=== PATIENT | female | born 1940 | race Caucasian/White ===

== ENCOUNTER 2020-11-26 01:26 | Inpatient (IN) | payer OTHER ==
[2020-11-26 01:40] VITALS: BMI 26.6
[2020-11-26 02:27] LABS: HEMATOCRIT 37.8 % (32.4-45.2); HEMOGLOBIN 11.6 GM/dL (10.7-15.3); MCH 29.5 pg (25.7-33.7); MCHC 30.8 g/dl (32.0-36.0); MEAN CELL VOLUME 95.7 fl (80-96); MEAN PLT VOLUME 9.8 fl (7.5-11.1); PLATELET COUNT 248 10^3/uL (134-434); RBC 3.95 M/mm3 (3.60-5.2); WHITE BLOOD COUNT 18.2 K/mm3 (4.0-10.0)
[2020-11-26 03:05] LABS: ALBUMIN 2.8 g/dl (3.4-5.0); ALK PHOS 81 U/L (45-117); ANION GAP 6 MMOL/L (8-16); BILIRUBIN,TOTAL 0.2 mg/dL (0.2-1); BLOOD UREA NITROGEN 52.4 mg/dL (7-18); CALCIUM 7.8 mg/dL (8.5-10.1); CHLORIDE 125 mmol/L (98-107); CO2 21 mmol/L (21-32); CREATININE 2.3 mg/dL (0.55-1.3); GLUCOSE,RANDOM 238 mg/dL (74-106); MAGNESIUM 2.8 mg/dL (1.8-2.4); SGOT/AST 13 U/L (15-37); SGPT/ALT 19 U/L (13-61); SODIUM 152 mmol/L (136-145); TOT PROT 7.1 g/dl (6.4-8.2)
[2020-11-26 03:26] LABS: EPI CELLS 8 /uL (0-25.1); HYALINE CASTS 7 /uL (0-3.1); URINE APPEARANCE CLOUDY; URINE BACTERIA 8612 /uL (0-1359); URINE BILIRUBIN NEGATIVE (NEGATIVE); URINE COLOR YELLOW; URINE GLUCOSE (UA) NEGATIVE (NEGATIVE); URINE KETONE NEGATIVE (NEGATIVE); URINE LEUK ESTERASE 3+ (NEGATIVE); URINE NITRITE NEGATIVE (NEGATIVE); URINE PROTEIN TRACE (NEGATIVE); URINE RBC 10 /uL (0-23.9); URINE UROBILINOGEN 0.2 mg/dL (0.2-1.0); URINE WBC 382 /uL (0-25.8)
[2020-11-26] MEDS ORDERED: LACTATED RINGERS SOLUTION 1000 ML INFUS.BAG IV ONE (03:28)
[2020-11-26] MEDS ORDERED: CEFTRIAXONE 1 GM/50 ML BAG ONE (04:58)
[2020-11-26 05:18] LABS: YEAST PRESENT (NEGATIVE)
[2020-11-26] MEDS ORDERED: PIPERACILLIN/TAZOB 3.375 GM 3.375 GM in DEXTROSE 5%-WATER - 50 ML IVPB ONE (07:25)
[2020-11-26] MEDS ORDERED: VANCOMYCIN 1,000 MG in DEXTROSE 5%-WATER - 250 ML IVPB ONE (07:26)
[2020-11-26] MEDS ORDERED: VANCOMYCIN 1 GRAM (PRE-DOCKED) 1,000 MG/250 ML BAG IVPB ONE ×2 (07:47→08:51)
[2020-11-26] MEDS ORDERED: PIPERACILLIN/TAZOB 3.375 GM 3.375 GM/50 ML BAG IVPB ONE (07:48)
[2020-11-26] MEDS ORDERED: ISOSORBIDE MONONITRATE 60 MG TAB.SR.24H (FP) PO ONE (09:08)
[2020-11-26] MEDS ORDERED: lamoTRIgine 25 MG TABLET ONE (09:09)
[2020-11-26] MEDS: ISOSORBIDE MONONITRATE 30 MG TAB.SR.24H (FP) PO SCH (09:22)
[2020-11-26] MEDS: lamoTRIgine 25 MG TABLET PO SCH ×2 (09:22→22:36)
[2020-11-26] MEDS: SODIUM CHLORIDE 0.45% 1,000 ML IV SCH (15:55)
[2020-11-26] MEDS ORDERED: INSULIN (NOVOLOG) ASPART 100 UNITS/ML 10ML VIAL ONE (17:27)
[2020-11-26] MEDS ORDERED: levETIRAcetam 500 MG TABLET (FP) PO SCH (22:00)
[2020-11-26] MEDS: levETIRAcetam 500 MG/5 ML INJECTION VIAL IVPB SCH (22:34)
[2020-11-27] MEDS: SODIUM CHLORIDE 0.45% 1,000 ML IV SCH ×3 (02:02→20:36)
[2020-11-27] MEDS: lamoTRIgine 25 MG TABLET PO SCH ×2 (09:30→21:19)
[2020-11-27] MEDS: ISOSORBIDE MONONITRATE 30 MG TAB.SR.24H (FP) PO SCH (09:30)
[2020-11-27] MEDS: levETIRAcetam 500 MG/5 ML INJECTION VIAL IVPB SCH ×2 (09:31→21:20)
[2020-11-27] MEDS ORDERED: CEFTRIAXONE 1 GM in DEXTROSE 5%-WATER - 50 ML IVPB SCH ×2 (10:00→11:45)
[2020-11-27 19:33] LABS: CREATININE 1.1 mg/dL (0.55-1.3)
[2020-11-27 20:03] LABS: BLOOD UREA NITROGEN 25.4 mg/dL (7-18)
[2020-11-27] MEDS ORDERED: INSULIN (NOVOLOG) ASPART 100 UNITS/ML 10ML VIAL SQ ONE (21:43)
[2020-11-27] MEDS ORDERED: QUEtiapine FUMARATE 25 MG TABLET PO ONE (23:45)
[2020-11-28] MEDS ORDERED: MIRTAZAPINE 15 MG TABLET (FP) PO ONE (01:56)
[2020-11-28 08:36] LABS: BASO % 0.8 % (0-2.0); EOS % 2.9 % (0-4.5); HEMATOCRIT 34.7 % (32.4-45.2); HEMOGLOBIN 11.4 GM/dL (10.7-15.3); LYMPH % 12.9 % (8-40); MCH 30.3 pg (25.7-33.7); MCHC 32.8 g/dl (32.0-36.0); MEAN CELL VOLUME 92.2 fl (80-96); MEAN PLT VOLUME 10.2 fl (7.5-11.1); MONO % 9.4 % (3.8-10.2); PLATELET COUNT 238 10^3/uL (134-434); RBC 3.77 M/mm3 (3.60-5.2); RDW 13.8 % (11.6-15.6); WHITE BLOOD COUNT 11.5 K/mm3 (4.0-10.0)
[2020-11-28 09:05] LABS: CALCIUM 7.8 mg/dL (8.5-10.1)
[2020-11-28 09:06] LABS: ALBUMIN 2.9 g/dl (3.4-5.0); BLOOD UREA NITROGEN 16.3 mg/dL (7-18); MAGNESIUM 1.8 mg/dL (1.8-2.4)
[2020-11-28 09:09] LABS: PHOSPHOROUS 1.2 mg/dL (2.5-4.9)
[2020-11-28 09:10] LABS: BILIRUBIN,TOTAL 0.5 mg/dL (0.2-1); TOT PROT 6.7 g/dl (6.4-8.2)
[2020-11-28] MEDS: ISOSORBIDE MONONITRATE 30 MG TAB.SR.24H (FP) PO SCH (09:11)
[2020-11-28] MEDS: lamoTRIgine 25 MG TABLET PO SCH ×2 (09:11→21:41)
[2020-11-28] MEDS: levETIRAcetam 500 MG/5 ML INJECTION VIAL IVPB SCH ×2 (09:12→22:46)
[2020-11-28] MEDS: SODIUM CHLORIDE 0.45% 1,000 ML IV SCH ×2 (09:15→13:33)
[2020-11-28] MEDS ORDERED: POTASSIUM PHOSPHATE 30 MM in DEXTROSE 5%-WATER - 500 ML IVPB ONE (14:02)
[2020-11-28] MEDS ORDERED: PT OWN MED DRAWER 7, Y5N ONE (21:28)
[2020-11-28] MEDS: MIRTAZAPINE 15 MG TABLET (FP) PO SCH (21:41)
[2020-11-29 08:02] LABS: HEMATOCRIT 32.1 % (32.4-45.2); HEMOGLOBIN 10.8 GM/dL (10.7-15.3); MCH 30.6 pg (25.7-33.7); MCHC 33.6 g/dl (32.0-36.0); MEAN PLT VOLUME 10.2 fl (7.5-11.1); PLATELET COUNT 221 10^3/uL (134-434); RBC 3.53 M/mm3 (3.60-5.2); WHITE BLOOD COUNT 10.1 K/mm3 (4.0-10.0)
[2020-11-29 08:46] LABS: BLOOD UREA NITROGEN 9.9 mg/dL (7-18); CALCIUM 7.1 mg/dL (8.5-10.1); CREATININE 0.9 mg/dL (0.55-1.3); MAGNESIUM 1.5 mg/dL (1.8-2.4); PHOSPHOROUS 2.2 mg/dL (2.5-4.9)
[2020-11-29] MEDS: levETIRAcetam 500 MG/5 ML INJECTION VIAL IVPB SCH ×2 (09:00→22:11)
[2020-11-29] MEDS: SODIUM CHLORIDE 0.45% 1,000 ML IV SCH ×2 (09:01→13:54)
[2020-11-29] MEDS: lamoTRIgine 25 MG TABLET PO SCH ×2 (09:01→22:11)
[2020-11-29] MEDS: ISOSORBIDE MONONITRATE 30 MG TAB.SR.24H (FP) PO SCH (09:01)
[2020-11-29] MEDS ORDERED: MINERAL OIL ENEMA 133 ML ENEMA PR ONE (11:26)
[2020-11-29] MEDS ORDERED: amLODIPine BESYLATE 5 MG TABLET (FP) PO SCH (13:30)
[2020-11-29] MEDS: DEXTROSE 5%-0.45% SALINE 1,000 ML IV SCH (13:57)
[2020-11-29] MEDS: amLODIPine BESYLATE 5 MG TABLET (FP) PO SCH (15:08)
[2020-11-29] MEDS ORDERED: MAGNESIUM SULF 50% (8.12 MEQ/2 ML-1 GM VIAL) IVPB ONE (15:13)
[2020-11-29] MEDS ORDERED: POTASSIUM PHOSPHATE 30 MM in DEXTROSE 5%-WATER - 500 ML IVPB ONE (18:30)
[2020-11-29] MEDS: MIRTAZAPINE 15 MG TABLET (FP) PO SCH (22:11)
[2020-11-30] MEDS: QUEtiapine FUMARATE 25 MG TABLET PO PRN ×2 (02:07→02:19)
[2020-11-30] MEDS ORDERED: LORazepam 2 MG/ML SDV VIAL IVPUSH ONE (03:00)
[2020-11-30] MEDS: levETIRAcetam 500 MG/5 ML INJECTION VIAL IVPB SCH ×2 (10:56→22:23)
[2020-11-30] MEDS: ISOSORBIDE MONONITRATE 30 MG TAB.SR.24H (FP) PO SCH (12:32)
[2020-11-30] MEDS: lamoTRIgine 25 MG TABLET PO SCH ×2 (12:33→22:32)
[2020-11-30] MEDS: amLODIPine BESYLATE 5 MG TABLET (FP) PO SCH (12:34)
[2020-11-30 13:11] LABS: BLOOD UREA NITROGEN 5.5 mg/dL (7-18); CALCIUM 7.6 mg/dL (8.5-10.1)
[2020-11-30 13:15] LABS: CREATININE 0.9 mg/dL (0.55-1.3)
[2020-11-30] MEDS: DEXTROSE 5%-0.45% SALINE 1,000 ML IV SCH (13:15)
[2020-11-30] MEDS ORDERED: FAT EMULSIONS 20% 250 ML PREMIX INFUS.BAG IV SCH (14:07)
[2020-11-30 14:38] LABS: PHOSPHOROUS 2.1 mg/dL (2.5-4.9)
[2020-11-30] MEDS ORDERED: POTASSIUM PHOSPHATE 15 MM in DEXTROSE 5%-WATER - 500 ML IVPB ONE (15:30)
[2020-11-30] MEDS: AMINO ACIDS 4.25%/D5W 1,000 ML IV SCH (15:36)
[2020-11-30] MEDS: QUEtiapine FUMARATE 25 MG TABLET PO SCH ×2 (22:00→23:33)
[2020-11-30] MEDS: MIRTAZAPINE 15 MG TABLET (FP) PO SCH (22:32)
[2020-11-30] MEDS: FAT EMULSION/OLIVE/SOY/PHOSPHO 250 ML IV SCH (23:19)
[2020-12-01] MEDS: ISOSORBIDE MONONITRATE 30 MG TAB.SR.24H (FP) PO SCH (09:16)
[2020-12-01] MEDS: QUEtiapine FUMARATE 25 MG TABLET PO SCH ×2 (09:17→21:07)
[2020-12-01] MEDS: lamoTRIgine 25 MG TABLET PO SCH ×2 (09:17→21:06)
[2020-12-01] MEDS: amLODIPine BESYLATE 5 MG TABLET (FP) PO SCH (09:18)
[2020-12-01] MEDS: levETIRAcetam 500 MG/5 ML INJECTION VIAL IVPB SCH ×2 (09:20→21:06)
[2020-12-01] MEDS: LORazepam 2 MG/ML SDV VIAL IVPUSH PRN ×2 (14:09→23:16)
[2020-12-01] MEDS: SODIUM CHLORIDE 1,000 ML IV SCH (14:09)
[2020-12-01] MEDS: AMINO ACIDS 4.25%/D5W 1,000 ML IV SCH (15:49)
[2020-12-01] MEDS: MIRTAZAPINE 15 MG TABLET (FP) PO SCH (21:06)
[2020-12-01] MEDS: FAT EMULSION/OLIVE/SOY/PHOSPHO 250 ML IV SCH (23:09)
[2020-12-02 09:14] LABS: CALCIUM 8.3 mg/dL (8.5-10.1)
[2020-12-02 09:16] LABS: BLOOD UREA NITROGEN 11.3 mg/dL (7-18); MAGNESIUM 1.7 mg/dL (1.8-2.4)
[2020-12-02 09:17] LABS: CREATININE 0.9 mg/dL (0.55-1.3); PHOSPHOROUS 2.4 mg/dL (2.5-4.9)
[2020-12-02 09:18] LABS: BILIRUBIN,TOTAL 0.4 mg/dL (0.2-1); TOT PROT 6.8 g/dl (6.4-8.2)
[2020-12-02] MEDS: QUEtiapine FUMARATE 25 MG TABLET PO SCH (09:18)
[2020-12-02] MEDS: lamoTRIgine 25 MG TABLET PO SCH ×2 (09:18→21:53)
[2020-12-02] MEDS: levETIRAcetam 500 MG/5 ML INJECTION VIAL IVPB SCH ×2 (09:18→21:52)
[2020-12-02] MEDS: LORazepam 2 MG/ML SDV VIAL IVPUSH PRN (09:18)
[2020-12-02] MEDS: ISOSORBIDE MONONITRATE 30 MG TAB.SR.24H (FP) PO SCH (09:18)
[2020-12-02] MEDS: amLODIPine BESYLATE 5 MG TABLET (FP) PO SCH (09:18)
[2020-12-02] MEDS: HALOPERIDOL LACTATE 5 MG/ML IM PRN (10:58)
[2020-12-02] MEDS ORDERED: MAGNESIUM 1GM/D5W 100ML - 100 ML IVPB IVPB ONE (11:00)
[2020-12-02] MEDS: AMINO ACIDS 4.25%/D5W 1,000 ML IV SCH (16:00)
[2020-12-02] MEDS: FAT EMULSION/OLIVE/SOY/PHOSPHO 250 ML IV SCH (21:54)
[2020-12-02] MEDS: MIRTAZAPINE 15 MG TABLET (FP) PO SCH (21:54)
[2020-12-03] MEDS: LORazepam 2 MG/ML SDV VIAL IVPUSH PRN ×2 (00:55→09:29)
[2020-12-03] MEDS: HALOPERIDOL LACTATE 5 MG/ML IM PRN ×3 (02:22→21:54)
[2020-12-03 08:36] LABS: CALCIUM 8.9 mg/dL (8.5-10.1)
[2020-12-03 08:37] LABS: BLOOD UREA NITROGEN 12.8 mg/dL (7-18); MAGNESIUM 1.8 mg/dL (1.8-2.4)
[2020-12-03 08:40] LABS: CREATININE 0.8 mg/dL (0.55-1.3); PHOSPHOROUS 2.1 mg/dL (2.5-4.9)
[2020-12-03] MEDS: amLODIPine BESYLATE 5 MG TABLET (FP) PO SCH (09:01)
[2020-12-03] MEDS: lamoTRIgine 25 MG TABLET PO SCH ×2 (09:01→21:43)
[2020-12-03] MEDS: ISOSORBIDE MONONITRATE 30 MG TAB.SR.24H (FP) PO SCH (09:01)
[2020-12-03] MEDS: levETIRAcetam 500 MG/5 ML INJECTION VIAL IVPB SCH ×2 (09:28→21:42)
[2020-12-03] MEDS: AMINO ACIDS 4.25%/D5W 1,000 ML IV SCH (14:15)
[2020-12-03] MEDS: FAT EMULSION/OLIVE/SOY/PHOSPHO 250 ML IV SCH (21:42)
[2020-12-03] MEDS: MIRTAZAPINE 15 MG TABLET (FP) PO SCH (21:43)
[2020-12-04 06:00] VITALS: BP 146/66; PULSE 91; TEMP 97.7
[2020-12-04 09:24] LABS: CALCIUM 9.3 mg/dL (8.5-10.1)
[2020-12-04 09:25] LABS: BLOOD UREA NITROGEN 11.7 mg/dL (7-18); MAGNESIUM 1.9 mg/dL (1.8-2.4)
[2020-12-04 09:28] LABS: CREATININE 0.8 mg/dL (0.55-1.3); PHOSPHOROUS 2.5 mg/dL (2.5-4.9)
[2020-12-04] MEDS ORDERED: ACETAMINOPHEN 1000 MG/100 ML VIAL (NON FORMULARY) IVPB PRN (09:46)
[2020-12-04] MEDS: amLODIPine BESYLATE 5 MG TABLET (FP) PO SCH (10:19)
[2020-12-04] MEDS: ISOSORBIDE MONONITRATE 30 MG TAB.SR.24H (FP) PO SCH (10:19)
[2020-12-04] MEDS: lamoTRIgine 25 MG TABLET PO SCH (10:19)
[2020-12-04] MEDS: levETIRAcetam 500 MG/5 ML INJECTION VIAL IVPB SCH (11:51)
[2020-12-04] MEDS: SODIUM CHLORIDE 1,000 ML IV SCH (11:51)
[2020-12-04] MEDS ORDERED: INSULIN (NOVOLOG) ASPART 100 UNITS/ML 10ML VIAL ONE (14:01)
[2020-12-04 14:08] LABS: SARS-CoV-2 NAA Not Detected (Not Detected)
[2020-12-04] MEDS: AMINO ACIDS 4.25%/D5W 1,000 ML IV SCH (17:30)
[2020-12-04] MEDS: LORazepam 2 MG/ML SDV VIAL IVPUSH PRN (17:38)
== END 2020-12-04 19:17 | DRG 884 ==
LOC: JER 01:26 → JERBED 03:44 → J7W 11:34
PROVIDERS: ADMIT Internal Medicine; ATTEND Internal Medicine
PROC: 02HV33Z Insertion of Infusion Device into Superior Vena Cava, Percutaneous Approach (ICD-10-PCS; principal; 2020-12-04)
PROC: B548ZZA Ultrasonography of Superior Vena Cava, Guidance (ICD-10-PCS; 2020-12-04)
DX: F03.91 Unspecified dementia, unspecified severity, with behavioral disturbance (principal); N17.9 Acute kidney failure, unspecified; E87.0 Hyperosmolality and hypernatremia; I10 Essential (primary) hypertension; E11.9 Type 2 diabetes mellitus without complications; E78.5 Hyperlipidemia, unspecified; R62.7 Adult failure to thrive; I25.10 Atherosclerotic heart disease of native coronary artery without angina pectoris; G40.909 Epilepsy, unspecified, not intractable, without status epilepticus; E86.0 Dehydration; K59.00 Constipation, unspecified; E83.42 Hypomagnesemia; E83.39 Other disorders of phosphorus metabolism
CPT/HCPCS: 36415; 36569; 70450-TC; 71045-TC-FY; 74018-TC-FY; 74230-TC-FY; 76775-TC; 80048; 80053; 81003; 82550; 82570; 82962; 83735; 84100; 84156; 84300; 84443; 84484; 85025; 85027; 87040; 87086; 87899; 92611-GN; 93005; 93010; 99291; C9803; J0131; U0003; U0005